=== PATIENT | male | born 1980 | race American Indian/Alaskan Native ===

== ENCOUNTER 2020-08-26 21:22 | Emergency (ER) | payer BC ==
[2020-08-26 21:34] VITALS: BP 146/88
--- NOTE | 2020-08-27 01:15 | Emergency Department Report ---
ED Male HPI - General Chief complaint: Urogenital-Male Stated complaint: PAINFUL PENIS Time Seen by Provider: 08/27/20 00:35 Source: patient Mode of arrival: Ambulatory Limitations: No Limitations - History of Present Illness Initial comments: Pulmonary medical assessment: Complaining of waking with a painful erection after having rough sex with tenderness at the base of the penis about 3 days ago the reaction has resolved and does resolve spontaneously but he continued to have tenderness at the base of the penis with palpation reports no issues with hematuria or dysuria no testicular pain or swelling, no herniation no fever, chills, sweats. MD Complaint: groin pain -: Sudden Location: penis Radiation: none Severity: mild Quality: dull Consistency: constant Improves with: none Worsens with: palpation denies: swelling, urinary retention, nausea/vomiting, incontinence - Related Data Home Medications Medication Instructions Recorded Confirmed Last Taken lisinopriL [Zestril TAB] 20 mg PO QDAY 07/30/15 12/21/15 12/20/15 raNITIdine HCl [Zantac] 150 mg PO BID 07/30/15 12/21/15 12/20/15 Previous Rx's Medication Instructions Recorded Last Taken Type Cyclobenzaprine HCl [Flexeril 5 MG 5 mg PO Q8HR PRN #10 tab 07/31/15 Unknown Rx TAB] Hydrocortisone [Anucort-HC SUPPOS] 25 mg RC BID 7 Days supp.rect 12/22/15 Unknown Rx Allergies Allergy/AdvReac Type Severity Reaction Status Date / Time No Known Allergies Allergy Verified 12/21/15 09:35 ED Review of Systems ROS: Stated complaint: PAINFUL PENIS Other details as noted in HPI Comment: All other systems reviewed and negative ED Past Medical Hx - Past Medical History Previous Medical History?: Yes Hx Hypertension: Yes Hx GERD: Yes Hx Sickle Cell Disease: No - Surgical History Past Surgical History?: No - Social History Smoking Status: Current Every Day Smoker - Medications Home Medications: Home Medications Medication Instructions Recorded Confirmed Last Taken Type lisinopriL [Zestril TAB] 20 mg PO QDAY 07/30/15 12/21/15 12/20/15 History raNITIdine HCl [Zantac] 150 mg PO BID 07/30/15 12/21/15 12/20/15 History Cyclobenzaprine HCl [Flexeril 5 MG 5 mg PO Q8HR PRN #10 tab 07/31/15 12/21/15 Unknown Rx TAB] Hydrocortisone [Anucort-HC SUPPOS] 25 mg RC BID 7 Days supp.rect 12/22/15 Unknown Rx ED Physical Exam - General Limitations: No Limitations General appearance: alert, in no apparent distress - Head Head exam: Present: atraumatic, normocephalic - Eye Eye exam: Present: normal appearance Pupils: Present: irregular - ENT ENT exam: Present: mucous membranes moist - Neck Neck exam: Present: normal inspection - Respiratory Respiratory exam: Present: normal lung sounds bilaterally. Absent: respiratory distress - Cardiovascular Cardiovascular Exam: Present: regular rate, normal rhythm. Absent: systolic murmur, diastolic murmur, rubs, gallop - GI/Abdominal GI/Abdominal exam: Present: soft, normal bowel sounds - Rectal Rectal exam: Present: deferred - exam: Absent: testicular tenderness, urethral discharge, scrotal swelling, vertical testicular lie External exam: Absent: erythema, swelling, lacerations, ecchymosis - Extremities Exam Extremities exam: Present: normal inspection, normal capillary refill - Back Exam Back exam: Present: normal inspection - Neurological Exam Neurological exam: Present: alert, oriented X3 - Psychiatric Psychiatric exam: Present: normal affect, normal mood - Skin Skin exam: Present: warm, dry, intact, normal color. Absent: rash ED Course Vital Signs 08/26/20 21:32 Temperature 98.9 F Pulse Rate 94 H Respiratory 18 Rate Blood Pressure 146/88 O2 Sat by Pulse 95 Oximetry ED Medical Decision Making - Medical Decision Making No emergent or urgent medical cause was found on physical semination patient states he primarily wanted to make sure his circulation was okay as he had read on [employer] that it pain at the base of the penis could mean that he had no blood flow to his penis and it would be could be an emergency so he thought his circulation may have been cut off. Patient was reassured of the examination of the findings and need to follow-up with primary care provider and encouraged to be reevaluated in 24 to 48 hours Critical care attestation.: If time is entered above; I have spent that time in minutes in the direct care of this critically ill patient, excluding procedure time. ED Disposition Clinical Impression: Penile pain Disposition: DC-01 TO HOME OR SELFCARE Is pt being admited?: No Does the pt Need Aspirin: No Condition: Stable Additional Instructions: 39-year-old male seen for penile pain after prolonged painful erection. Area of pain is in the area of the attaching suspensory ligament. There is no vascular compromise to the penile region noted no testicular compromise or infectious process appear to be present. No issues with urination or erectile achievement. Be sure to follow-up with your primary care doctor for reevaluation and definitive management as no urgent or emergent condition can be found at this present time Referrals: PRIMARY CARE, [Primary Care Provider] - 2-3 Days
== END 2020-08-27 01:20 | disposition home or self-care (01) ==
LOC: ED 21:22
DX: N48.89 Other specified disorders of penis (principal); I10 Essential (primary) hypertension; K21.9 Gastro-esophageal reflux disease without esophagitis; F17.200 Nicotine dependence, unspecified, uncomplicated; Z79.899 Other long term (current) drug therapy
CPT/HCPCS: 99282